=== PATIENT | male | born 1960 | race African-American/Black ===

== ENCOUNTER 2017-03-04 09:15 | Inpatient (IN) | payer BC ==
[2017-03-04 09:38] VITALS: BMI 43.4
--- NOTE | 2017-03-06 09:45 | HP ---
DATE OF ADMISSION: 03/10/2017 HISTORY OF PRESENT ILLNESS: The patient is a 56-year-old male with a long history of severe degenera tive arthritis of both hips, unresponsive to conservative treatment. He underwent left total hip rep lacement in October of this year with good results, but continues to have severe pain in his right hip d espite rest, restriction of activities, and anti-inflammatory medications. PAST MEDICAL HISTORY: Please see the old chart. The patient has history of thyroid replacement, hyp ertension, cluster headaches, allergic rhinitis. He has been seen and cleared for surgery by Dr. Taveras at [facility]. CURRENT MEDICATIONS: Include Levoxyl, albuterol inhaler, losartan, Tylenol, diclofenac, vitamin D, a nd hydrocodone. ALLERGIES: He has no known allergies. FAMILY HISTORY: Otherwise unremarkable. SOCIAL HISTORY: Otherwise unremarkable. REVIEW OF SYSTEMS: Otherwise unremarkable. PHYSICAL EXAMINATION: GENERAL: Reveals a healthy, heavyset black male. HEENT: Unremarkable. NECK: Supple. CHEST: Clear. HEART: Regular rate and rhythm. ABDOMEN: Soft, nontender. RECTAL/GENITAL: Deferred. EXTREMITIES: Pertinent findings are related to the right hip. There is tenderness in the anterior h ip. There is a right antalgic gait. There is decreased range of motion and groin pain with internal rotation of the hip. Neurovascular exam is intact. X-RAY FINDINGS: X-rays of the right hip reveal severe degenerative arthritis with no joint space rem aining. IMPRESSION: 1. Degenerative arthritis, right hip. 2. Status post left total hip replacement. 3. History of thyroid replacement. 4. History of hypertension. PLAN: Right total hip replacement. The nature of the surgery, length of recovery, and potential com plications such as infection, loss of motion, incomplete relief, neurovascular injury, thromboembolic phenomenon, leg length discrepancy, possible transfusion, and need for revision have been discussed in detail.
[2017-03-10] MEDS ORDERED: Vancomycin HCl 2 GM, Admixture Fee 1 EACH in Sodium Chloride 0.9% 500 ML IVPB SCH (07:30)
[2017-03-10] MEDS ORDERED: CEFAZOLIN 3 GM, Admixture Fee 1 EACH in Sodium Chloride 0.9% 100 ML IVPB SCH (07:30)
[2017-03-10] MEDS ORDERED: Tranexamic Acid 1,000 MG/100 ML BAG ONE ×2 (07:48→12:16)
[2017-03-10] MEDS ORDERED: Fentanyl 100 MCG/2 ML VIAL ONE ×4 (07:55→13:33)
[2017-03-10] MEDS ORDERED: Midazolam HCl 2 mg/2 ml Vial ONE (07:55)
[2017-03-10] MEDS ORDERED: Ondansetron HCl/PF 4 MG/2 ML Vial IVP PRN ×3 (08:45→15:01)
[2017-03-10] MEDS ORDERED: Naloxone HCl 0.4 mg/ml Vial IV PRN (08:45)
[2017-03-10] MEDS ORDERED: diphenhydrAMINE 50 MG/ML VIAL IM PRN (08:45)
[2017-03-10] MEDS ORDERED: Eucerin (Mineral Oil/Petrolatum,White) 30 gm Jar TOP PRN (08:45)
[2017-03-10] MEDS ORDERED: HYDROcodone/Acetaminophen 5/325 mg Tablet PO PRN (08:45)
[2017-03-10] MEDS ORDERED: Promethazine HCl 25 MG SUPP PR PRN (08:45)
[2017-03-10] MEDS ORDERED: Fentanyl/Bupivacaine 250 ML in Premix Bag 1 BAG EPIDURAL SCH (08:45)
[2017-03-10] MEDS ORDERED: diphenhydrAMINE 50 MG/ML VIAL IVP PRN (08:45)
[2017-03-10] MEDS ORDERED: diphenhydrAMINE 25 MG CAP PO PRN ×2 (08:45→15:01)
[2017-03-10] MEDS ORDERED: traMADol HCl 50 MG TAB PO PRN ×3 (08:45→15:01)
[2017-03-10] MEDS ORDERED: Promethazine HCl 25 MG/ML VIAL IM PRN ×2 (08:45→10:48)
[2017-03-10] MEDS ORDERED: Zolpidem Tartrate 5 MG TAB PO PRN ×2 (08:45→15:01)
[2017-03-10] MEDS ORDERED: Bupivacaine 0.25% 10 ML VIAL EPIDURAL PRN (08:45)
[2017-03-10] MEDS ORDERED: Naloxone HCl 0.4 mg/ml Vial IVP PRN (08:45)
[2017-03-10] MEDS ORDERED: Bupivacaine PF 0.5% 30 ML VIAL ONE (09:45)
[2017-03-10] MEDS ORDERED: Promethazine HCl 25 MG/ML VIAL SLOW IVP PRN ×2 (10:48→15:01)
[2017-03-10] MEDS ORDERED: Tranexamic Acid 1,000 MG in Sodium Chloride 0.9% 100 ML IVPB SCH ×2 (12:15→15:01)
[2017-03-10] MEDS ORDERED: Fentanyl/Bupivacaine 250 ML EPIDURAL ONE (13:06)
--- NOTE | 2017-03-10 13:06 | OP ---
DATE OF PROCEDURE: 03/10/2017 PREOPERATIVE DIAGNOSIS: End-stage bicompartmental osteoarthritis, right hip. POSTOPERATIVE DIAGNOSIS: End-stage bicompartmental osteoarthritis, right hip. PROCEDURE PERFORMED: Press-Fit right total hip arthroplasty. SURGEON: Micah Romero M.D. INSTRUCTIONAL RESOURCE TEACHER: Arian Guerrero PA-C. ANESTHESIA: General via endotracheal tube augmented with indwelling epidural. COMPONENTS USED: [employer] primary Accolade press-fit hip stem size 3 with a Trident PSL p ress-fit 58 mm acetabular shell with a 0 degree polyethylene fixed bearing insert, and a neutral offs et size 40 Biolox ceramic femoral head. ESTIMATED BLOOD LOSS: 350 mL FINDINGS: End-stage severe degenerative bicompartmental disease, bone on bone arthrosis, particular osteophyte formation, large serous effusion, hypertrophic synovium, and changes consistent with degen erative bicompartmental arthrosis. DRAINS: None. SPECIMENS: None. COMPLICATIONS: None. COUNTS: Correct. INDICATIONS FOR SURGERY: Mr. Romero is a 56-year-old -[place] male who has had progressive right hip groin and thigh pain amplified with standing and walking for the last 5-7 years. He has fa iled conservative management and elected to proceed with total hip arthroplasty as definitive treatme nt of his pain. PROCEDURE IN DETAIL: After informed consent was obtained in the preoperative holding area, the patie nt was taken to the operative suite where general anesthesia was induced. The patient was then posit ioned in the lateral decubitus position. The hip was then prepped and draped in usual sterile fashio n. The patient received preoperative antibiotics. Prior to incision, time-out was called and all me mbers of the surgical team agreed upon site, surgeon, and patient. After this, a longitudinal incisi on was made directly over the trochanter, noted by palpation extending 2 fingerbreadths above and bel ow the trochanter. The deeper subcutaneous layer was undermined with Bovie electrocautery. The ilio tibial band was encountered and incised sharply and the plane below this was developed bluntly. A elil retractor was placed to hold this opened. The lateral aspect of the trochanter and the abduct or muscles were encountered and then reflected anteriorly off the trochanter using Bovie electrocaute ry. Once this was completed, the anterior capsule was then encountered and identified and copious ca psulotomy was carried out, exposing the femoral neck and head. Dislocation maneuver was then performe d and an in situ provisional neck cut was then made using the oscillating saw. Attention was then tu rned to acetabular preparation and sequential reaming was carried out up to the appropriate diameter and a trial was then malleted into place with good firm resistance and no pullout. The permanent scot tabular shell was then malleted squarely into place, as was the appropriate liner. Once completed, t he wound was copiously irrigated and attention was then turned to femoral preparation. Flexion and ex ternal rotation was performed of the exposed thigh and femoral elevators were then placed at the prox imal aspect of the wound. Canal finder was used to establish the length of the canal and sequential reaming was carried out, followed by broaching. Once the appropriate stability was established with the trial broaches with both flexion, extension and rotational stability, we did trial with neutral a nd 2 mm offset incremental necks. Once the appropriate size was decided upon, with good stability no harlan with flexion, extension, internal and external rotation and shuck being negative, we removed the femoral trial broach and malletted into place the permanent prosthesis with good firm fit, which was also stable to rotation. Again, the hip felt very stable to flexion, extension, internal and externa l rotation. Leg lengths appeared near anatomic clinically and we were quite happy with prosthesis pl acement. Copious irrigation was then carried out through the entirety of the wound. Primary closure of the abductors was accomplished with interrupted #2 Vicryl [id number] stitches and the IT ban d was then closed with interrupted #2 Vicryl, oversewn with a #2 running barbed Quill stitch. Subcut aneous fascia was closed with running barbed Quill stitch and a subcuticular Monocryl barbed Quill st itch was used for skin closure and augmented with skin cement. A sterile dressing was applied. The p rocedure was terminated without any complication. All counts were correct. The patient was awakened in the operative suite and taken to the recovery room in stable condition.
--- NOTE | 2017-03-10 14:44 | RAD ---
TWO VIEWS RIGHT HIP: Indication: Post op for a right total hip. IMPRESSION: Right total hip prosthesis projects in the expected position without gross evidence of complication. POS: [facility]
[2017-03-10] MEDS ORDERED: Ketorolac Tromethamine 30 MG/ML VIAL IVP SCH (15:00)
[2017-03-10] MEDS ORDERED: Acetaminophen 325 MG TAB PO PRN (15:01)
[2017-03-10] MEDS ORDERED: Fentanyl 100 MCG/2 ML VIAL SLOW IVP PRN ×2 (15:01)
[2017-03-10] MEDS ORDERED: HYDROcodone/Acetaminophen 10/325 mg Tablet PO PRN ×2 (15:01)
[2017-03-10] MEDS ORDERED: CEFAZOLIN/Water 2 GM/20 ML SYRINGE SLOW IVP SCH (15:01)
[2017-03-10] MEDS ORDERED: Aspirin 325 MG TAB PO SCH (15:15)
[2017-03-10] MEDS: Ketorolac Tromethamine 30 MG/ML VIAL IVP SCH ×2 (15:41→17:22)
[2017-03-10] MEDS ORDERED: Glycopyrrolate 0.2 MG/ML 5 ML SYRINGE ONE (16:14)
[2017-03-10] MEDS ORDERED: Ondansetron HCl/PF 4 MG/2 ML Vial ONE (16:14)
[2017-03-10] MEDS ORDERED: Labetalol HCl 100 MG/20 ML VIAL ONE (16:14)
[2017-03-10] MEDS ORDERED: Ketorolac Tromethamine 30 MG/ML VIAL ONE (16:14)
[2017-03-10] MEDS ORDERED: PHENYLEPHRINE-NS 100 MCG/ML 10 ML SYRINGE ONE (16:14)
[2017-03-10] MEDS ORDERED: Propofol 200 MG/20 ML VIAL ONE (16:14)
[2017-03-10] MEDS: Sodium Chloride 0.9% 1,000 ML IV SCH (16:53)
[2017-03-10] MEDS: CEFAZOLIN 3 GM in Sodium Chloride 0.9% 100 ML IVPB SCH (17:23)
[2017-03-10] MEDS: Aspirin 325 MG TAB PO SCH (21:17)
[2017-03-11] MEDS: Sodium Chloride 0.9% 1,000 ML IV SCH ×3 (00:27→20:15)
[2017-03-11] MEDS: Ketorolac Tromethamine 30 MG/ML VIAL IVP SCH ×4 (00:56→18:37)
[2017-03-11] MEDS: CEFAZOLIN 3 GM in Sodium Chloride 0.9% 100 ML IVPB SCH (00:57)
[2017-03-11 04:40] LABS: Hematocrit 37.7 % (42.0-52.0); Mean Platelet Volume 6.5 fL (7.4-10.4); Red Blood Cell (RBC) Count 3.97 mill/uL (4.70-6.10); White Blood Cell (WBC) Count 7.3 thou/uL (4.8-10.8)
[2017-03-11] MEDS: Levothyroxine Sodium 100 MCG TAB PO SCH (05:16)
[2017-03-11] MEDS: Senokot S 8.6-50 MG TAB PO SCH ×2 (08:18→20:49)
[2017-03-11] MEDS: Multivitamin W/ Minerals 1 TAB PO SCH (08:18)
[2017-03-11] MEDS: Aspirin 325 MG TAB PO SCH ×2 (08:18→20:49)
[2017-03-11] MEDS: Ferrous Gluconate 324 MG TAB PO SCH ×2 (08:18→17:09)
[2017-03-11] MEDS: HYDROcodone/Acetaminophen 5/325 mg Tablet PO PRN ×3 (12:15→21:00)
[2017-03-12] MEDS: Ketorolac Tromethamine 30 MG/ML VIAL IVP SCH ×2 (01:00→05:24)
[2017-03-12] MEDS: HYDROcodone/Acetaminophen 5/325 mg Tablet PO PRN ×4 (01:14→14:16)
[2017-03-12] MEDS: Levothyroxine Sodium 100 MCG TAB PO SCH (05:21)
[2017-03-12] MEDS: Sodium Chloride 0.9% 1,000 ML IV SCH (06:10)
[2017-03-12 08:39] VITALS: BP 139/85; TEMP 98.7
[2017-03-12] MEDS: Ferrous Gluconate 324 MG TAB PO SCH (10:20)
[2017-03-12] MEDS: Multivitamin W/ Minerals 1 TAB PO SCH (10:20)
[2017-03-12] MEDS: Aspirin 325 MG TAB PO SCH (10:20)
[2017-03-12] MEDS: Senokot S 8.6-50 MG TAB PO SCH (10:21)
== END 2017-03-12 14:57 | disposition home or self-care (01) | DRG 470 ==
LOC: SJJU 03-10 06:38 → EEVIPCON 03-10 09:15 → SJJU 03-10 15:11
PROVIDERS: ADMIT Orthopaedic Surgery; ATTEND Orthopaedic Surgery
PROC: 0SR904A Replacement of Right Hip Joint with Ceramic on Polyethylene Synthetic Substitute, Uncemented, Open Approach (ICD-10-PCS; principal; 2017-03-10)
PROC: 3E0T3BZ Introduction of Anesthetic Agent into Peripheral Nerves and Plexi, Percutaneous Approach (ICD-10-PCS; 2017-03-10)
DX: M16.11 Unilateral primary osteoarthritis, right hip (principal); I10 Essential (primary) hypertension; Z96.642 Presence of left artificial hip joint
CPT/HCPCS: 36415; 85027; A4216; G8978-GP-CJ; G8979-GP-CJ; J0690; J1885; J2250; J2405; J2704; J3010; J3370; J7050; S0020

== ENCOUNTER 2017-03-04 09:19 | Outpatient (CLI) | payer BC ==
[2017-03-04 10:48] LABS: Bilirubin Negative (Negative); Blood, Urine Negative (Negative); Glucose, Urine (Dipstick) Negative (Negative); Hematocrit 45.2 % (42.0-52.0); Ketone, Urine Negative (Negative); Nitrite Negative (Negative); Protein, Urine (Dipstick) Negative (Neg-Trace); Red Blood Cell (RBC) Count 4.77 mill/uL (4.70-6.10); White Blood Cell (WBC) Count 4.3 thou/uL (4.8-10.8)
[2017-03-04 10:52] LABS: Bacteria/HPF None Seen HPF (None Seen); Hyaline Casts/LPF 0-3 HYALINE CAST LPF (0-3 Hyaline); RBC/HPF 0-3 HPF (0-3); Squamous Epithelial None Seen HPF (0-3); WBC/HPF 0-3 HPF (0-3)
[2017-03-04 10:54] LABS: Prothrombin Time 13.1 SEC (12.0-14.7)
[2017-03-04 11:12] LABS: Anion Gap 12 mmol/L (10-20); BUN (Urea Nitrogen) 16 mg/dL (8.4-25.7); Calc. Creatinine Clearance 0 mL/min (70-130); Calcium 9.2 mg/dL (7.8-10.44); Carbon Dioxide 28 mmol/L (22-29); Chloride 105 mmol/L (98-107); Estimated GFR-MDRD 77
== END 2017-03-04 09:20 | disposition home or self-care (01) ==
LOC: LABBT 09:19
PROVIDERS: ATTEND Orthopaedic Surgery
DX: Z01.818 Encounter for other preprocedural examination (principal); M16.11 Unilateral primary osteoarthritis, right hip
CPT/HCPCS: 80048; 81001; 85027; 85610; 86850; 86900; 86901; 87081; 93005; 93010